=== PATIENT | male | born 1950 | race Caucasian/White ===

== ENCOUNTER 2021-05-15 17:29 | Emergency (ER) | payer BC ==
[2021-05-15] MEDS ORDERED: MORPHINE SULFATE 4 MG INJ IM ONE (18:17)
[2021-05-15] MEDS ORDERED: MORPHINE SULFATE 4 MG INJ ONE (18:19)
--- NOTE | 2021-05-15 18:23 | ERPHSYRPT ---
- History of Present Illness Source: patient Exam Limitations: no limitations Patient Subjective Stated Complaint: " I have had pain in both my legs for a few weeks and I'm suppose to have an MRI but I can't stand the pain anymore. I can barely walk". Triage Nursing Assessment: Pt presents to ER with complaints of bilateral posterior leg pains x 1 month. Pt states pain is worse today than normal. Pt was involved in an accident on 04/01/2021, he fell 7ft and injuried self. Pt is alert and oriented, hard of hearing. Pt skin is pink, warm, and dry. Walks in a short shuffle with impaired gait. Pt respirations are easy. Pt rates pain 10/10 scale and states is worse on left side. Pt has had some doppler studies for this issue and is scheduled for MRI on 05/21 but can't stand the pain anymore. Method of Injury: fell Occurred: days ago (04/01/21) Quality: constant Severity of Pain-Max: severe Severity of Pain-Current: severe Lower Extremities Pain: hip: bilateral, leg: bilateral Modifying Factors: Worsens With: movement Hx Tetanus, Diphtheria Vaccination/Date Given: No Hx Influenza Vaccination/Date Given: Yes Hx Pneumococcal Vaccination/Date Given: Yes Immunizations Up to Date: Yes <RAMONA VILLARREAL - Last Filed: 05/15/21 18:18> <AFSHAN PARMAR - Last Filed: 05/15/21 23:01> - History of Present Illness Time Seen by Provider: 05/15/21 18:08 Physician History: 70 years old male presented in the ER with chief complaint of bilateral hip, legs pain for little over 2 months. He fell off of his 7 feet ladder, landed on the side in the head. He was seen at [facility], had CTs done which were negative. Later on he has 2 Doppler studies done which were negative as well. Per he had a CTA done which showed some occlusion in the arteries and was evaluated by cardiology who do not think patient's pain is secondary to vascular problem but because of pain and has been scheduled for MRI on the of this month. Patient was independent prior to fall but now is having difficulty ambulation with walker. Patient report his pain is 10 out of 10, sharp, bilateral hip and lower leg/feet, cannot stand this pain, aggravated with movements and no significant relieving factors. He has been taking NSAIDs with no relief at all. Denies any new fall or trauma. Denies any numbness but because of pain has been having difficulty movements. Denies any loss of bowel or bladder control (RAMONA VILLARREAL) Allergies/Adverse Reactions: Sulfa (Sulfonamide Antibiotics) Allergy (Verified 05/15/21 18:07) Home Medications: Aspirin 325 mg PO DAILY 05/15/21 [History] Latanoprost 1 drop IO DAILY 05/15/21 [History] Lisinopril 5 mg [Zestril 5 MG] 2.5 mg PO DAILY 05/15/21 [History] Meloxicam 7.5 mg PO DAILY 05/15/21 [History] Metformin HCl [Metformin HCl ER] 1 tab PO DAILY 05/15/21 [History] Verapamil HCl Sr 240 mg [Isoptin S.r. 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 - Vaccination Dates Date of 2cond Vaccination (if applicable): November 2020 <RAMONA VILLARREAL - Last Filed: 05/15/21 18:18> - Review of Systems Constitutional: No Symptoms Eyes: No Symptoms Ears, Nose, & Throat: No Symptoms Respiratory: No Symptoms Cardiac: No Symptoms Abdominal/Gastrointestinal: No Symptoms Genitourinary Symptoms: No Symptoms Musculoskeletal: Back Pain, Injury Skin: No Symptoms Neurological: No Symptoms Psychological: No Symptoms Endocrine: No Symptoms Hematologic/Lymphatic: No Symptoms Immunological/Allergic: No Symptoms <RAMONA VILLARREAL - Last Filed: 05/15/21 18:18> - Past Medical History Pertinent Past Medical History: Yes Cardiac History: Hypertension Endocrine Medical History: Diabetes Type II - Past Surgical History Past Surgical History: Yes Gastrointestinal: Hernia Repair - Social History Smoking Status: Never smoker Exposure to second hand smoke: No Drug Use: none Patient Lives Alone: No <RAMONA VILLARREAL - Last Filed: 05/15/21 18:18> - Physical Exam General Appearance: no apparent distress, alert Eyes, Ears, Nose, Throat Exam: normal ENT inspection, pharynx normal Neck Exam: normal inspection, non-tender, supple, full range of motion Cardiovascular/Respiratory Exam: chest non-tender, normal breath sounds, regular rate/rhythm Gastrointestinal/Abdominal Exam: non-tender, soft, no organomegaly Back Exam: normal inspection, normal range of motion Hips Exam: bilateral: bone tenderness, limited range of motion, pain, soft tissue tenderness, swelling Legs Exam: bilateral leg: non-tender, normal inspection, normal range of motion, no evidence of injury Knees Exam: bilateral knee: non-tender, normal inspection, normal range of motion, no evidence of injury Ankle Exam: bilateral ankle: non-tender, normal inspection, normal range of motion, no evidence of injury Foot Exam: bilateral foot: non-tender, normal inspection, normal range of motion, no evidence of injury Neuro/Tendon Exam: normal sensation, normal tendon functions Mental Status Exam: alert, oriented x 3, cooperative Skin Exam: normal color SpO2 Interpretation: normal SpO2: 97 O2 Delivery: Room Air <RAMONA VILLARREAL - Last Filed: 05/15/21 18:18> - Nursing Vital Signs Nursing Vital Signs: Initial Vital Signs Temperature 99 F 05/15/21 17:59 Pulse Rate 72 05/15/21 17:59 Respiratory Rate 16 05/15/21 17:59 Blood Pressure 175/82 05/15/21 17:59 O2 Sat by Pulse Oximetry 97 05/15/21 17:59 Pain Scale Pain Intensity 5 - Course Nursing assessment & vital signs reviewed: Yes - CT Exams Lumbar Spine CT Interpretation: Tele-radiologist Report, Other (edema at L5-S1 /possible diskitis) <AFSHAN PARMAR - Last Filed: 05/15/21 23:01> Ordered Tests: Active Orders 24 hr Category Date Time Status LUMBAR SPINE W/O [CT] Stat Exams 05/15/21 18:17 Taken PELVIS WITHOUT CONTRAST [CT] Stat Exams 05/15/21 18:17 Taken CBC W DIFF Stat Lab 05/15/21 21:38 Completed SED RATE [Erythrocyte Sedimentation Rate] Stat Lab 05/15/21 21:38 Completed Medication Summary Discontinued Medications Generic Name Dose Route Start Last Admin Trade Name Freq PRN Reason Stop Dose Admin Gabapentin 100 mg 05/15/21 20:41 05/15/21 21:14 Neurontin 100 Mg PO 05/15/21 20:42 100 mg STAT ONE Administration Hydromorphone HCl 4 mg 05/15/21 21:02 05/15/21 21:14 Dilaudid 4 Mg Tab PO 05/15/21 21:03 4 mg STAT ONE Administration Hydromorphone HCl 0.5 mg 05/15/21 21:10 05/15/21 21:15 Hydromorphone 1 Mg/Ml Injection IV 05/15/21 21:11 Not Given STAT ONE Morphine Sulfate 4 mg 05/15/21 18:17 05/15/21 18:22 Morphine Sulfate 4 Mg Inj IM 05/15/21 18:18 4 mg STAT ONE Administration Morphine Sulfate Confirm 05/15/21 18:19 Morphine Sulfate 4 Mg Inj Administered 05/15/21 18:20 Dose 4 mg .ROUTE .STK-MED ONE Orphenadrine Citrate 60 mg 05/15/21 20:00 05/15/21 20:04 Norflex 60 Mg/2 Ml IM 05/15/21 20:01 60 mg STAT ONE Administration Orphenadrine Citrate Confirm 05/15/21 20:03 Norflex 60 Mg/2 Ml Administered 05/15/21 20:04 Dose 60 mg .ROUTE .STK-MED ONE Prednisone 30 mg 05/15/21 19:58 05/15/21 20:04 Deltasone 20 Mg PO 05/15/21 19:59 30 mg STAT ONE Administration Prednisone Confirm 05/15/21 20:03 Deltasone 20 Mg Administered 05/15/21 20:04 Dose 40 mg .ROUTE .STK-MED ONE Lab/Rad Data: Laboratory Result Diagrams 05/15/21 21:38 Laboratory Results 05/15/21 Range/Units 21:38 WBC 9.4 (4.0-10.5) K/mm3 RBC 4.19 (4.1-5.6) M/mm3 Hgb 13.5 (12.5-18.0) gm/dl Hct 41.0 L (42-50) % MCV 97.9 (78-100) fl MCH 32.2 H (26-32) pg MCHC 32.9 (32-36) g/dl RDW 12.1 (11.5-14.0) % Plt Count 260 (150-450) K/mm3 MPV 8.5 (7.5-11.0) fl Gran % 78.2 H (36.0-66.0) % Eos # (Auto) 0.07 (0-0.5) Absolute Lymphs (auto) 0.75 L (1.0-4.6) Absolute Monos (auto) 1.20 (0.0-1.3) Lymphocytes % 8.0 L (24.0-44.0) % Monocytes % 12.8 H (0.0-12.0) % Eosinophils % 0.7 (0.00-5.0) % Basophils % 0.3 (0.0-0.4) % Absolute Granulocytes 7.30 H (1.4-6.9) Basophils # 0.03 (0-0.4) ESR 60 H (0-15) mm/hr - Progress Progress: improved, re-examined Counseled pt/family regarding: lab results, diagnosis, need for follow-up, rad results <AFSHAN PARMAR - Last Filed: 05/15/21 23:01> - Progress Progress Note: 05/15/21 19:41 pt taken in [facility] from Dr. Villarreal after discussion of pending tests and prior w/us at other locations recently for similar symptoms, and introduction and differential Dx discussion - - has had previous workups finding non critical PAD bilateral LE and has good pulses now on exam. pain management boost being his main concern but we are rechecking CT hips since these are most painful now. 05/15/21 19:57 discussed risk and benefit of short course steroids ada with DM and pt and wish to try this , also muscle relaxant. Exam revelas normal neuro and reflexes all ext. no HURLEY or other Neuro sxs. 05/15/21 20:[address] reading which is taking longer due to recent high volumes. 05/15/21 22:45 CT is concerning for discitis - WBC is normal, but hx of fevers more than a week ago with UTI now resolved without symptoms - sed rate at 60 . Discussed with pt and family and pt wishes to decline further testing in ER or admission for obs at this time after discussion of risks that this could be infection - and he has the capacity to make this choice , and states that he will return if not continuing to improve. He is advised to see his provider ZEAN and move up his MRI as well. (AFSHAN PARMAR) <LEO VILLARREALMIR - Last Filed: 05/15/21 18:18> - Departure Departure Disposition: Home Critical Care Time: No <AFSHAN PARMAR - Last Filed: 05/15/21 23:01> - Departure Clinical Impression: DDD (degenerative disc disease), lumbar, Edema L5 and possible discitis Condition: Good Referrals: Provider,Unknown [Primary Care Provider] - Instructions: Degenerative Disc Disease (DC) Additional Instructions: We have not determined the exact cause for your pain , but there are findings of disc disease in the lumbar spine. There are also concerns the inflammation or even infection such as in the disks could be present and require urgent therapy - so it is best to see your Doctor or medical provider as soon as possible to arrange a more urgent MRI if possible to better evaluate this possibility. Also followup your blood pressure with your Dr. In the meantime if you change your mind and would like admission or further evaluation , are not improving, have fevers, or any other symptoms of concern return any time. Prescriptions: Orphenadrine Citrate 100 mg [Norflex 100 MG Tablet] 100 mg PO Q12H PRN PRN #14 tab PRN Reason: Muscle Spasms Gabapentin 100 mg [Neurontin 100 MG] 100 mg PO TID #20 tab
[2021-05-15] MEDS ORDERED: DELTASONE 20 MG PO ONE (19:58)
[2021-05-15] MEDS ORDERED: Norflex 60 MG/2 ML IM ONE (20:00)
[2021-05-15] MEDS ORDERED: DELTASONE 20 MG ONE (20:03)
[2021-05-15] MEDS ORDERED: Norflex 60 MG/2 ML ONE (20:03)
[2021-05-15] MEDS ORDERED: Neurontin 100 MG PO ONE (20:41)
[2021-05-15] MEDS ORDERED: Dilaudid 4 MG Tab PO ONE (21:02)
[2021-05-15] MEDS ORDERED: Hydromorphone 1 mg/ml Injection IV ONE (21:10)
[2021-05-15 21:34] VITALS: O2SAT 95
[2021-05-15 21:41] LABS: BASOPHIL % 0.3 % (0.0-0.4); Basophil (Absolute #) 0.03 (0-0.4); Eosinophil % 0.7 % (0.00-5.0); Eosinophil (Absolute #) 0.07 (0-0.5); Hemoglobin 13.5 gm/dl (12.5-18.0); Lymphocyte (Absolute #) 0.75 (1.0-4.6); Mean Cell Volume 97.9 fl (78-100); Mean Corpuscular Hemoglobin 32.2 pg (26-32); Mean Corpuscular Hgb Concent. 32.9 g/dl (32-36); Mean Platelet Volume 8.5 fl (7.5-11.0); Monocytes % 12.8 % (0.0-12.0); Neutrophil % 78.2 % (36.0-66.0); Platelet Count 260 K/mm3 (150-450); Red Blood Count 4.19 M/mm3 (4.1-5.6); Red Cell Distribution Width 12.1 % (11.5-14.0); White Blood Count 9.4 K/mm3 (4.0-10.5)
[2021-05-15 22:09] LABS: Erythrocyte Sedimentation Rate 60 mm/hr (0-15)
[2021-05-15 23:05] VITALS: BP 167/90; PULSE 68
--- NOTE | 2021-05-16 06:43 | XRAY ---
Indication: Hip and low back pain following fall 2 months. Multiple contiguous axial images obtained through the pelvis with special attention to the osseous structures. Comparison: None Osseous structures demineralized consistent with patient's age. No acute fracture, dislocation, or suspicious bony lesions. Visualized noncontrasted soft tissues including bowel loops and urinary bladder are unremarkable. Incidental mild aortoiliac calcifications. CT lumbar spine reported separately. Impression: 1. Osteopenia and arteriosclerotic calcifications. 2. Remaining CT pelvis without contrast exam is negative. Comment: Preliminary interpretation made by [facility]. No critical discrepancy.
--- NOTE | 2021-05-17 11:33 | XRAY ---
Indication: Hip and low back pain following fall 2 months. Multiple contiguous axial images obtained through the lumbar spine. Sagittal and coronal reformatted images obtained. Comparison: None Osseous structures demineralized consistent with patient's age. Axial images negative for acute fracture or suspicious bone lesions. There is L2-S1 annular disc osteophyte complex narrowing the spinal canal and neural foramina bilaterally. Also minimal L3-L4 degenerative vacuum disc phenomena and mild/moderate L3-S1 degenerative facet hypertrophy. Sagittal and coronal reformatted images demonstrates normal lumbar lordosis with L2-S1 disc space loss. Minimal 1-2 mm anterolisthesis of L5 on S1. No acute compression fracture. Visualized noncontrasted soft tissues demonstrates scattered aortoiliac calcifications. Impression: 1. Negative for acute fracture. 2. Osteopenia, multilevel degenerative spondylosis, and minimal L5 grade 1 spondylolisthesis. Comment: Preliminary interpretation made by [facility]. No critical discrepancy.
== END 2021-05-15 23:13 | disposition home or self-care (01) ==
LOC: ED 17:29
DX: M51.36 Other intervertebral disc degeneration, lumbar region (principal); R60.9 Edema, unspecified; M79.605 Pain in left leg; M79.604 Pain in right leg; Z79.899 Other long term (current) drug therapy; E11.9 Type 2 diabetes mellitus without complications
CPT/HCPCS: 36415; 72131; 72192; 85025; 85652; 96372; 99284; J2270; J2360; A9270-GY

== ENCOUNTER 2021-05-28 03:28 | Inpatient (IN) | payer MEDICARE, BC ==
[2021-05-28] MEDS ORDERED: TYLENOL 325 MG PO STA (04:03)
[2021-05-28] MEDS ORDERED: Sodium Chloride 0.9% 1000 ML 1,000 ML IV STA (04:03)
[2021-05-28] MEDS ORDERED: Sodium Chloride 0.9% 1000 ML 1,000 ML ONE (04:30)
[2021-05-28] MEDS ORDERED: TYLENOL 325 MG ONE (04:30)
--- NOTE | 2021-05-28 04:37 | ERPHSYRPT ---
- History of Present Illness Time Seen by Provider: 05/28/21 03:45 Source: patient Exam Limitations: no limitations Patient Subjective Stated Complaint: pt c/o low back pain since fall and diagnosis with compression fractures. ems states he is barely able to walk at home Triage Nursing Assessment: pt alert and oriented, answers questions approp. pt very hard of hearing. pt arrive per ambulance and transfers to [facility] with assist of 3. skin warm and dry. respirations nonlabored. pt with urinary frequency and stress incont noted. Physician History: Patient is a 70-year-old male presents to our ED via EMS for evaluation of low back pain. Patient also admits to urinary frequency and incontinence. Upon arrival to our ED it was found patient to be tachycardic in the 120s. Patient was febrile upon triage. Patient had an MRI 1 week ago for his back. No interval falls or trauma. Patient symptoms are progressive. Symptoms are moderate in intensity. No specific worsening improving factors. No change in bowel bladder function. No saddle anesthesia. No recent back procedures. Patient voices no other complaints concerns at this time. Timing/Duration: week(s) Severity: moderate Modifying Factors: Improves With: nothing Associated Symptoms: fever, No abdominal pain, No chest pain, No loss of appetite, No syncope, No seizure Allergies/Adverse Reactions: Sulfa (Sulfonamide Antibiotics) Allergy (Verified 05/28/21 04:43) Home Medications: Aspirin 325 mg PO DAILY 05/15/21 [History] Latanoprost 1 drop IO DAILY 05/15/21 [History] Lisinopril 5 mg [Zestril 5 MG] 2.5 mg PO DAILY 05/15/21 [History] Meloxicam 7.5 mg PO DAILY 05/15/21 [History] Metformin HCl [Metformin HCl ER] 1 tab PO DAILY 05/15/21 [History] Gabapentin 100 mg [Neurontin 100 MG] 300 mg PO TID 05/28/21 [History] Hydrocodone/Acetaminophen [Hydrocodone-Acetamin 7.5-325] 1 each PO Q6H PRN PRN 05/28/21 [History] Methylprednisolone 4 mg [Medrol 4 mg] 4 mg PO 05/28/21 [History] Hx Tetanus, Diphtheria Vaccination/Date Given: No Hx Influenza Vaccination/Date Given: Yes Hx Pneumococcal Vaccination/Date Given: Yes Immunizations Up to Date: No Travel Risk - International Travel Have you traveled outside of the country in past 3 weeks: No - Coronavirus Screening Are you exhibiting any of the following symptoms?: Yes Symptoms: Fever, Loss of Taste or Smell Close contact with a COVID-19 positive Pt in past 14-21 Days: No - Vaccine Status Have you recieved a Covid-19 vaccination: Yes 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 - Vaccination Dates Date of 2cond Vaccination (if applicable): November 2020 Dates if Unknown: above dates - Review of Systems Constitutional: No Symptoms, No Fever, No Chills Eyes: No Symptoms Ears, Nose, & Throat: No Symptoms Respiratory: No Symptoms, No Cough, No Dyspnea Cardiac: No Symptoms, No Chest Pain, No Edema, No Syncope Abdominal/Gastrointestinal: No Symptoms, No Abdominal Pain, No Nausea, No Vomi ting, No Diarrhea Genitourinary Symptoms: No Symptoms, No Dysuria Musculoskeletal: No Symptoms, No Back Pain, No Neck Pain Skin: No Symptoms, No Rash Neurological: No Symptoms, No Dizziness, No Focal Weakness, No Sensory Changes Psychological: No Symptoms Endocrine: No Symptoms Hematologic/Lymphatic: No Symptoms Immunological/Allergic: No Symptoms All Other Systems: Reviewed and Negative - Past Medical History Pertinent Past Medical History: Yes Cardiac History: Hypertension Endocrine Medical History: Diabetes Type II Other Medical History: compression fx of l5-s1 - Past Surgical History Past Surgical History: Yes Gastrointestinal: Hernia Repair - Social History Smoking Status: Never smoker Exposure to second hand smoke: No Drug Use: none Patient Lives Alone: No - Nursing Vital Signs Nursing Vital Signs: Initial Vital Signs Temperature 100.0 F 05/28/21 03:37 Pulse Rate 114 H 05/28/21 03:37 Respiratory Rate 18 05/28/21 03:37 Blood Pressure 181/93 05/28/21 03:37 O2 Sat by Pulse Oximetry 94 L 05/28/21 03:37 Pain Scale Pain Intensity [Lower Back] 10 Pain Intensity 6 - Physical Exam General Appearance: no apparent distress, alert Eye Exam: PERRL/EOMI, eyes nml inspection Ears, Nose, Throat Exam: normal ENT inspection, TMs normal, pharynx normal, moist mucous membranes Neck Exam: normal inspection, non-tender, supple, full range of motion Respiratory Exam: normal breath sounds, lungs clear, No respiratory distress Cardiovascular Exam: regular rate/rhythm, normal heart sounds, normal peripheral pulses Gastrointestinal/Abdomen Exam: soft, normal bowel sounds, other (Left costovertebral angle tenderness.), No tenderness, No mass Back Exam: normal inspection, normal range of motion, other (Chronic back pain), No CVA tenderness, No vertebral tenderness Extremity Exam: normal inspection, normal range of motion, pelvis stable Neurologic Exam: alert, oriented x 3, cooperative, normal mood/affect, sensation nml, No motor deficits Skin Exam: normal color, warm, dry, No rash Lymphatic Exam: No adenopathy SpO2 Interpretation: normal SpO2: 94 O2 Delivery: Room Air - Course Nursing assessment & vital signs reviewed: Yes Ordered Tests: Active Orders 24 hr Category Date Time Status IV Insertion STAT Care 05/28/21 04:03 Active Pulse Oximetry (ED) STAT Care 05/28/21 04:03 Active BLOOD CULTURE Stat Lab 05/28/21 04:37 Ordered CBC W DIFF Stat Lab 05/28/21 04:37 Completed CMP Stat Lab 05/28/21 04:37 Completed CULTURE,URINE Stat Lab 05/28/21 04:37 Received Lactic Acid Stat Lab 05/28/21 04:03 Completed Manual Differential NC Stat Lab 05/28/21 04:37 Completed UA W/RFX UR CULTURE Stat Lab 05/28/21 03:53 Completed Transfer Order Routine Transfer 05/28/21 Ordered Medication Summary Generic Name Dose Route Start Last Admin Trade Name Freq PRN Reason Stop Dose Admin Ceftriaxone Sodium/Dextrose 1 g in 50 mls @ 100 mls/hr 05/28/21 10:00 05/28/21 05:46 Rocephin 1 Gm-D5w 50 Ml Bag IV 05/31/21 09:59 Infused [id number] MARIEL Infusion Discontinued Medications Generic Name Dose Route Start Last Admin Trade Name Freq PRN Reason Stop Dose Admin Acetaminophen 975 mg 05/28/21 04:03 05/28/21 04:36 Tylenol 325 Mg PO 05/28/21 04:04 975 mg STAT STA Administration Acetaminophen Confirm 05/28/21 04:30 Tylenol 325 Mg Administered 05/28/21 04:31 Dose 975 mg .ROUTE .STK-MED ONE Sodium Chloride 1,000 mls @ 999 mls/hr 05/28/21 04:03 05/28/21 05:47 Sodium Chloride 0.9% 1000 Ml IV 05/28/21 05:03 Infused .Q1H1M STA Infusion Sodium Chloride Confirm 05/28/21 04:30 Sodium Chloride 0.9% 1000 Ml Administered 05/28/21 04:31 Dose 1,000 mls @ .ROUTE .[facility] ONE Lab/Rad Data: Laboratory Result Diagrams 05/28/21 04:37 05/28/21 04:37 Laboratory Results 05/28/21 05/28/21 05/28/21 Range/Units 05:00 04:37 04:37 WBC 15.6 H (4.0-10.5) K/mm3 RBC 4.29 (4.1-5.6) M/mm3 Hgb 14.1 (12.5-18.0) gm/dl Hct 42.6 (42-50) % MCV 99.3 (78-100) fl MCH 32.9 H (26-32) pg MCHC 33.1 (32-36) g/dl RDW 12.4 (11.5-14.0) % Plt Count 279 (150-450) K/mm3 MPV 9.0 (7.5-11.0) fl Segmented Neutrophils 84 H (36.-66.) % Band Neutrophils 3 H (0.0-2.0) % Lymphocytes (Manual) 4 L (24-44) % Monocytes (Manual) 9 (0.0-12.0) % Platelet Estimate NORMAL (NORMAL) RBC Morphology NORMAL Sodium 129 L (137-145) mmol/L Potassium 4.5 (3.5-5.1) mmol/L Chloride 89 L (98-107) mmol/L Carbon Dioxide 30 (22-30) mmol/L Anion Gap 14.7 (5-15) MEQ/L BUN 23 H (9-20) mg/dL Creatinine 0.80 (0.66-1.25) mg/dL Estimated GFR > 60.0 ML/MIN Glucose 217 H (74-106) mg/dL Lactic Acid (0.4-2.0) Calcium 9.0 (8.4-10.2) mg/dL Total Bilirubin 1.00 (0.2-1.3) mg/dL AST 27 (17-59) U/L ALT 15 (0-50) U/L Alkaline Phosphatase 151 H (38-126) U/L Serum Total Protein 7.4 (6.3-8.2) g/dL Albumin 3.7 (3.5-5.0) g/dL Urine Color (YELLOW) Urine Appearance (CLEAR) Urine pH (5-6) Ur Specific [employer] (1.005-1.025) Urine Protein (Negative) Urine Ketones (NEGATIVE) Urine Blood (0-5) Miles/ul Urine Nitrite (NEGATIVE) Urine Bilirubin (NEGATIVE) Urine Urobilinogen (0-1) mg/dL Ur Leukocyte Esterase (NEGATIVE) Urine WBC (Auto) (0-5) /HPF Urine RBC (Auto) (0-2) /HPF U Epithel Cells (Auto) (FEW) /HPF Urine Bacteria (Auto) (NEGATIVE) /HPF Urine Culture Reflexed (NO) Urine Glucose (NEGATIVE) mg/dL SARS-CoV-2 (PCR) NEGATIVE (NEGATIVE) 05/28/21 05/28/21 Range/Units 04:03 03:53 WBC (4.0-10.5) K/mm3 RBC (4.1-5.6) M/mm3 Hgb (12.5-18.0) gm/dl Hct (42-50) % MCV (78-100) fl MCH (26-32) pg MCHC (32-36) g/dl RDW (11.5-14.0) % Plt Count (150-450) K/mm3 MPV (7.5-11.0) fl Segmented Neutrophils (36.-66.) % Band Neutrophils (0.0-2.0) % Lymphocytes (Manual) (24-44) % Monocytes (Manual) (0.0-12.0) % Platelet Estimate (NORMAL) RBC Morphology Sodium (137-145) mmol/L Potassium (3.5-5.1) mmol/L Chloride (98-107) mmol/L Carbon Dioxide (22-30) mmol/L Anion Gap (5-15) MEQ/L BUN (9-20) mg/dL Creatinine (0.66-1.25) mg/dL Estimated GFR ML/MIN Glucose (74-106) mg/dL Lactic Acid 1.6 (0.4-2.0) Calcium (8.4-10.2) mg/dL Total Bilirubin (0.2-1.3) mg/dL AST (17-59) U/L ALT (0-50) U/L Alkaline Phosphatase (38-126) U/L Serum Total Protein (6.3-8.2) g/dL Albumin (3.5-5.0) g/dL Urine Color YELLOW (YELLOW) Urine Appearance TURBID (CLEAR) Urine pH 6.0 (5-6) Ur Specific [employer] 1.014 (1.005-1.025) Urine Protein 100 (Negative) Urine Ketones NEGATIVE (NEGATIVE) Urine Blood LARGE (0-5) Miles/ul Urine Nitrite POSITIVE (NEGATIVE) Urine Bilirubin NEGATIVE (NEGATIVE) Urine Urobilinogen 4 (0-1) mg/dL Ur Leukocyte Esterase MODERATE (NEGATIVE) Urine WBC (Auto) >100 (0-5) /HPF Urine RBC (Auto) 51-100 (0-2) /HPF U Epithel Cells (Auto) NONE (FEW) /HPF Urine Bacteria (Auto) MANY (NEGATIVE) /HPF Urine Culture Reflexed ORDERED SEPARATELY (NO) Urine Glucose NEGATIVE (NEGATIVE) mg/dL SARS-CoV-2 (PCR) (NEGATIVE) - Progress Progress: improved Progress Note: Patient is a 70-year-old male with a history of diabetes presented to our ED with complaint of back pain. Patient also complains of urinary symptomology. Patient spontaneously voided 400 cc. Cespedes catheter inserted and an additional 400 cc of urine purulent urine was expressed. Patient had a low-grade fever. He was tachycardic in 120s. Work-up confirmed a urinary tract infection. Leukocytosis of 15.6 observed. 1 g Rocephin infused. Patient was hyponatremic at 129. Normal saline infused. Patient reassessed. He felt better. Pain imp roved. Covid test negative. Case discussed with Dr. Carreon as he is our on- call doctor for the day. Dr. Bowen accepts admission to observation. Admission orders placed. 05/28/21 06:48 Discussed with : Terrence Will see patient in: hospital (observation) Counseled pt/family regarding: lab results, diagnosis, rad results - Departure Departure Disposition: Observation Clinical Impression: UTI (urinary tract infection), Fever, Tachycardia, Hyponatremia, Leukocytosis, Urinary retention Condition: Stable Critical Care Time: No Referrals: SANKET BULLARD [Primary Care Provider] -
[2021-05-28 04:41] LABS: Hematocrit 42.6 % (42-50); Hemoglobin 14.1 gm/dl (12.5-18.0); Mean Cell Volume 99.3 fl (78-100); Mean Corpuscular Hemoglobin 32.9 pg (26-32); Mean Corpuscular Hgb Concent. 33.1 g/dl (32-36); Platelet Count 279 K/mm3 (150-450); Red Blood Count 4.29 M/mm3 (4.1-5.6); Red Cell Distribution Width 12.4 % (11.5-14.0); White Blood Count 15.6 K/mm3 (4.0-10.5)
[2021-05-28 04:48] LABS: Appearance TURBID (CLEAR); Bacteria MANY /HPF (NEGATIVE); Bilirubin NEGATIVE (NEGATIVE); Blood LARGE Ery/ul (0-5); Glucose NEGATIVE (NEGATIVE); Ketones NEGATIVE (NEGATIVE); Leukocyte Esterase MODERATE (NEGATIVE); Nitrite POSITIVE (NEGATIVE); Protein,Urine Dip 100 (Negative); RBC 51-100 /HPF (0-2); Specific Gravity 1.014 (1.005-1.025); Urobilinogen 4 mg/dL (0-1); WBC >100 /HPF (0-5)
[2021-05-28 04:53] LABS: ALBUMIN 3.7 g/dL (3.5-5.0); ALKALINE PHOSPHATASE 151 U/L (38-126); ANION GAP 14.7 MEQ/L (5-15); BLOOD UREA NITROGEN 23 mg/dL (9-20); CHLORIDE 89 mmol/L (98-107); Carbon Dioxide 30 mmol/L (22-30); EST GLOMERULAR FILTRATION RATE > 60.0 ML/MIN; Glucose 217 mg/dL (74-106); Potassium 4.5 mmol/L (3.5-5.1); SGOT/AST 27 U/L (17-59); SGPT/ALT 15 U/L (0-50); SODIUM 129 mmol/L (137-145); Total Protein 7.4 g/dL (6.3-8.2)
[2021-05-28 05:44] LABS: BAND 3 % (0.0-2.0); Lymphocytes 4 % (24-44); Monocyte 9 % (0.0-12.0); Neutrophils 84 % (36.-66.); Platelet Estimate NORMAL (NORMAL); Total Cells Counted 100
[2021-05-28] MEDS ORDERED: Zofran 4 MG/2 ML VIAL IV ONE (07:48)
[2021-05-28] MEDS ORDERED: MORPHINE SULFATE 2 MG INJ IV ONE (07:48)
[2021-05-28] MEDS ORDERED: Zofran 4 MG/2 ML VIAL ONE (07:49)
[2021-05-28] MEDS ORDERED: MORPHINE SULFATE 2 MG INJ ONE (07:49)
[2021-05-28] MEDS ORDERED: MORPHINE SULFATE 2 MG INJ IV PRN (09:36)
[2021-05-28] MEDS ORDERED: Zofran 4 MG/2 ML VIAL IV PRN (09:36)
[2021-05-28] MEDS: ROCEPHIN 1 Gm-D5w 50 ml Bag** 1 G/50 ML IVPB IV SCH (09:45)
[2021-05-28] MEDS ORDERED: ROCEPHIN 1 Gm-D5w 50 ml Bag** 1 G/50 ML IVPB IV SCH (10:00)
[2021-05-28] MEDS: Neurontin 400 MG PO SCH ×3 (11:23→22:53)
[2021-05-28] MEDS: HYDROCODONE-ACETAMIN 10-325 MG PO PRN ×2 (11:24→16:03)
[2021-05-28] MEDS: Sodium Chloride 0.9% 1000 ML 1,000 ML IV SCH ×2 (11:24→20:15)
[2021-05-28] MEDS ORDERED: ISOPTIN S.R. 240 MG PO ONE (13:59)
[2021-05-28] MEDS ORDERED: Zestril 5 MG PO ONE (13:59)
[2021-05-28] MEDS ORDERED: HUMALOG SQ PRN (14:47)
[2021-05-28] MEDS: Zestril 5 MG PO SCH (17:48)
[2021-05-28] MEDS: ISOPTIN S.R. 240 MG PO SCH (17:49)
[2021-05-28] MEDS: Hydromorphone 1 mg/ml Injection IV PRN (18:47)
[2021-05-28] MEDS: Xalatan OP SCH (18:48)
[2021-05-28] MEDS ORDERED: VANCOMYCIN 1 GRAM/200 ML BAG 1 GM/200 ML PIGGYBACK IV ONE ×2 (21:20→21:30)
[2021-05-28] MEDS: Zanaflex 4 MG PO SCH (22:53)
[2021-05-28] MEDS: TYLENOL 325 MG PO PRN (23:14)
[2021-05-29] MEDS: Hydromorphone 1 mg/ml Injection IV PRN (04:10)
[2021-05-29 05:30] LABS: Hematocrit 37.4 % (42-50); Hemoglobin 11.7 gm/dl (12.5-18.0); Mean Cell Volume 102.5 fl (78-100); Mean Corpuscular Hemoglobin 32.1 pg (26-32); Mean Corpuscular Hgb Concent. 31.3 g/dl (32-36); Mean Platelet Volume 9.1 fl (7.5-11.0); Platelet Count 223 K/mm3 (150-450); Red Blood Count 3.65 M/mm3 (4.1-5.6); Red Cell Distribution Width 12.7 % (11.5-14.0); White Blood Count 15.6 K/mm3 (4.0-10.5)
[2021-05-29] MEDS: HYDROCODONE-ACETAMIN 10-325 MG PO PRN ×3 (05:34→18:45)
[2021-05-29 05:40] LABS: ALBUMIN 2.7 g/dL (3.5-5.0); ALKALINE PHOSPHATASE 101 U/L (38-126); ANION GAP 13.5 MEQ/L (5-15); BLOOD UREA NITROGEN 24 mg/dL (9-20); CHLORIDE 91 mmol/L (98-107); Carbon Dioxide 28 mmol/L (22-30); Creatinine 1 1.08 mg/dL (0.66-1.25); EST GLOMERULAR FILTRATION RATE > 60.0 ML/MIN; Glucose 208 mg/dL (74-106); Potassium 4.3 mmol/L (3.5-5.1); SGOT/AST 20 U/L (17-59); SGPT/ALT 10 U/L (0-50); SODIUM 128 mmol/L (137-145); Total Protein 5.8 g/dL (6.3-8.2)
[2021-05-29 07:08] LABS: BAND 3 % (0.0-2.0); Lymphocytes 6 % (24-44); Monocyte 5 % (0.0-12.0); Neutrophils 86 % (36.-66.); Platelet Estimate NORMAL (NORMAL); Total Cells Counted 100
[2021-05-29] MEDS: Sodium Chloride 0.9% 1000 ML 1,000 ML IV SCH ×3 (07:46→23:30)
[2021-05-29] MEDS: ISOPTIN S.R. 240 MG PO SCH (09:14)
[2021-05-29] MEDS: Zestril 5 MG PO SCH (09:14)
[2021-05-29] MEDS: Zanaflex 4 MG PO SCH ×2 (09:14→13:49)
[2021-05-29] MEDS: ROCEPHIN 1 Gm-D5w 50 ml Bag** 1 G/50 ML IVPB IV SCH (09:15)
[2021-05-29] MEDS: Neurontin 400 MG PO SCH ×3 (09:15→22:21)
[2021-05-29] MEDS: Xalatan OP SCH ×2 (09:17→22:26)
[2021-05-29] MEDS ORDERED: Sodium Chloride 0.9% 1000 ML 1,000 ML IV STA (09:29)
[2021-05-29] MEDS ORDERED: Hydromorphone 1 mg/ml Injection IV PRN (09:31)
--- NOTE | 2021-05-29 15:25 | PCM.NOTE ---
Date and Time: 05/29/21 1520 Subjective Assessment: Patient is up in chair dozing. No new c/o. Blood cultures were both positive for gram positive cocci in clusters and Vancomycin was started last night. Patient is drinking but not hungry for food today. Is no c/o leg pain today ,meds are giving relief. Objective Exam General Appearance: no apparent distress Neurologic Exam: alert (but nodding off. Appears comfortable in chair with legs elevated.) Skin Exam: normal color, warm, dry Neck Exam: normal inspection Respiratory Exam: normal breath sounds Cardiovascular Exam: regular rate/rhythm Gastrointestinal/Abdomen Exam: soft (nontender,no flank or CVA tenderness) Extremity Exam: other (no edema,no tenderness when pulling socks down for exam, feet are cool,no redness.) OBJECTIVE DATA Vital Signs: Vital Signs - 24 hr Temp Pulse Resp BP BP Pulse Ox 05/29/21 13:38 99.7 F 05/29/21 12:00 99.0 F 87 18 144/72 93 L 05/29/21 08:00 97.6 F 66 20 154/72 94 L 05/29/21 04:07 97.1 F 69 18 149/78 97 05/28/21 23:42 100.0 F 86 20 145/67 96 05/28/21 19:12 97.8 F 80 16 125/67 94 L 05/28/21 16:00 99.4 F 96 H 18 182/88 93 L Pain Assessment - Last Documented Pain Intensity [Lower Back] 10 Pain Intensity 10 Pain Scale Used 0-10 Pain Scale Intake and Output: Intake & Output 05/27/21 05/28/21 05/29/21 05/30/21 11:59 11:59 11:59 11:59 Intake Total 2259 120 Output Total 400 2300 600 Balance -400 -41 -480 Weight 74.4 kg Lab Results: Lab Results-Last 24 Hours 05/28/21 05/28/21 05/28/21 Range/Units 16:00 18:20 20:44 WBC (4.0-10.5) K/mm3 RBC (4.1-5.6) M/mm3 Hgb (12.5-18.0) gm/dl Hct (42-50) % MCV (78-100) fl MCH (26-32) pg MCHC (32-36) g/dl RDW (11.5-14.0) % Plt Count (150-450) K/mm3 MPV (7.5-11.0) fl Segmented Neutrophils (36.-66.) % Band Neutrophils (0.0-2.0) % Lymphocytes (Manual) (24-44) % Monocytes (Manual) (0.0-12.0) % Platelet Estimate (NORMAL) RBC Morphology ESR 67 H (0-15) mm/hr Sodium (137-145) mmol/L Potassium (3.5-5.1) mmol/L Chloride (98-107) mmol/L Carbon Dioxide (22-30) mmol/L Anion Gap (5-15) MEQ/L BUN (9-20) mg/dL Creatinine (0.66-1.25) mg/dL Estimated GFR ML/MIN Glucose (74-106) mg/dL POC Glucometer 222 H 192 H (74 to 106) mg/dL Lactic Acid (0.4-2.0) Calcium (8.4-10.2) mg/dL Total Bilirubin (0.2-1.3) mg/dL AST (17-59) U/L ALT (0-50) U/L Alkaline Phosphatase (38-126) U/L Serum Total Protein (6.3-8.2) g/dL Albumin (3.5-5.0) g/dL Procalcitonin (0.030-0.080) ng/mL 05/29/21 05/29/21 05/29/21 Range/Units 05:17 05:17 05:17 WBC 15.6 H (4.0-10.5) K/mm3 RBC 3.65 L (4.1-5.6) M/mm3 Hgb 11.7 L (12.5-18.0) gm/dl Hct 37.4 L (42-50) % MCV 102.5 H (78-100) fl MCH 32.1 H (26-32) pg MCHC 31.3 L (32-36) g/dl RDW 12.7 (11.5-14.0) % Plt Count 223 (150-450) K/mm3 MPV 9.1 (7.5-11.0) fl Segmented Neutrophils 86 H (36.-66.) % Band Neutrophils 3 H (0.0-2.0) % Lymphocytes (Manual) 6 L (24-44) % Monocytes (Manual) 5 (0.0-12.0) % Platelet Estimate NORMAL (NORMAL) RBC Morphology NORMAL ESR (0-15) mm/hr Sodium 128 L (137-145) mmol/L Potassium 4.3 (3.5-5.1) mmol/L Chloride 91 L (98-107) mmol/L Carbon Dioxide 28 (22-30) mmol/L Anion Gap 13.5 (5-15) MEQ/L BUN 24 H (9-20) mg/dL Creatinine 1.08 (0.66-1.25) mg/dL Estimated GFR > 60.0 ML/MIN Glucose 208 H (74-106) mg/dL POC Glucometer (74 to 106) mg/dL Lactic Acid (0.4-2.0) Calcium 8.0 L (8.4-10.2) mg/dL Total Bilirubin 0.70 (0.2-1.3) mg/dL AST 20 (17-59) U/L ALT 10 (0-50) U/L Alkaline Phosphatase 101 (38-126) U/L Serum Total Protein 5.8 L (6.3-8.2) g/dL Albumin 2.7 L (3.5-5.0) g/dL Procalcitonin 0.589 H (0.030-0.080) ng/mL 05/29/21 05/29/21 05/29/21 Range/Units 05:30 07:33 11:29 WBC (4.0-10.5) K/mm3 RBC (4.1-5.6) M/mm3 Hgb (12.5-18.0) gm/dl Hct (42-50) % MCV (78-100) fl MCH (26-32) pg MCHC (32-36) g/dl RDW (11.5-14.0) % Plt Count (150-450) K/mm3 MPV (7.5-11.0) fl Segmented Neutrophils (36.-66.) % Band Neutrophils (0.0-2.0) % Lymphocytes (Manual) (24-44) % Monocytes (Manual) (0.0-12.0) % Platelet Estimate (NORMAL) RBC Morphology ESR (0-15) mm/hr Sodium (137-145) mmol/L Potassium (3.5-5.1) mmol/L Chloride (98-107) mmol/L Carbon Dioxide (22-30) mmol/L Anion Gap (5-15) MEQ/L BUN (9-20) mg/dL Creatinine (0.66-1.25) mg/dL Estimated GFR ML/MIN Glucose (74-106) mg/dL POC Glucometer 174 H 144 H (74 to 106) mg/dL Lactic Acid 1.3 (0.4-2.0) Calcium (8.4-10.2) mg/dL Total Bilirubin (0.2-1.3) mg/dL AST (17-59) U/L ALT (0-50) U/L Alkaline Phosphatase (38-126) U/L Serum Total Protein (6.3-8.2) g/dL Albumin (3.5-5.0) g/dL Procalcitonin (0.030-0.080) ng/mL Radiology Exams: Radiology Procedures Category Date Time Status MRI L-SPINE WITH CONTRAST [MRI] Routine Exams 05/31/21 08:00 Ordered MRI T-SPINE WITH CONTRAST [MRI] Routine Exams 05/31/21 08:00 Ordered Assessment/Plan (1) Sepsis Current Visit: Yes Status: Acute Qualifiers: Sepsis type: sepsis due to unspecified organism Assessment & Plan: urine and 2 blood cultures growing gram positive cocci in clusters- started Vancomycin - 1st dose was last night. Pharmacy dosing. Tmax= 99.7. Renal function and respirations are normal. (2) Radicular leg pain Current Visit: Yes Status: Acute Assessment & Plan: acute and chronic -pain controlled currently Code(s): M54.10 - RADICULOPATHY, SITE UNSPECIFIED
[2021-05-29] MEDS: Zanaflex 4 MG PO PRN (19:51)
[2021-05-30] MEDS: Zanaflex 4 MG PO PRN ×2 (03:35→09:35)
[2021-05-30] MEDS: HYDROCODONE-ACETAMIN 10-325 MG PO PRN (05:26)
[2021-05-30 06:38] LABS: Hematocrit 36.1 % (42-50); Hemoglobin 11.5 gm/dl (12.5-18.0); Mean Cell Volume 100.8 fl (78-100); Mean Corpuscular Hemoglobin 32.1 pg (26-32); Mean Corpuscular Hgb Concent. 31.9 g/dl (32-36); Mean Platelet Volume 9.9 fl (7.5-11.0); Platelet Count 215 K/mm3 (150-450); Red Blood Count 3.58 M/mm3 (4.1-5.6); Red Cell Distribution Width 12.5 % (11.5-14.0)
[2021-05-30 06:59] LABS: ALBUMIN 2.8 g/dL (3.5-5.0); ALKALINE PHOSPHATASE 126 U/L (38-126); ANION GAP 13.3 MEQ/L (5-15); BLOOD UREA NITROGEN 20 mg/dL (9-20); CHLORIDE 92 mmol/L (98-107); Calcium 7.8 mg/dL (8.4-10.2); Carbon Dioxide 22 mmol/L (22-30); Creatinine 1 0.79 mg/dL (0.66-1.25); EST GLOMERULAR FILTRATION RATE > 60.0 ML/MIN; Glucose 140 mg/dL (74-106); Potassium 4.1 mmol/L (3.5-5.1); SGOT/AST 32 U/L (17-59); SGPT/ALT 11 U/L (0-50); SODIUM 123 mmol/L (137-145); Total Protein 5.9 g/dL (6.3-8.2)
[2021-05-30] MEDS: TYLENOL 325 MG PO PRN ×2 (07:25→19:32)
[2021-05-30] MEDS: Sodium Chloride 0.9% 1000 ML 1,000 ML IV SCH (07:26)
[2021-05-30 09:01] LABS: BAND 12 % (0.0-2.0); Lymphocytes 4 % (24-44); Monocyte 7 % (0.0-12.0); Neutrophils 77 % (36.-66.); Platelet Estimate NORMAL (NORMAL); Total Cells Counted 100
[2021-05-30] MEDS ORDERED: TROUGH DRUG LEVELS IJ ONE (09:30)
[2021-05-30] MEDS: Neurontin 400 MG PO SCH ×3 (09:35→23:08)
[2021-05-30] MEDS: Zestril 5 MG PO SCH (09:35)
[2021-05-30] MEDS: ISOPTIN S.R. 240 MG PO SCH (09:35)
[2021-05-30] MEDS: ROCEPHIN 1 Gm-D5w 50 ml Bag** 1 G/50 ML IVPB IV SCH (09:36)
[2021-05-30] MEDS ORDERED: VANCOMYCIN 1 GRAM/200 ML BAG 1 GM/200 ML PIGGYBACK IV SCH (10:00)
[2021-05-30] MEDS ORDERED: Narcan 0.4 MG/ML IV PRN (11:30)
[2021-05-30] MEDS: DILAUDID 1 MG/1ML PCA IV PRN (11:42)
[2021-05-30] MEDS ORDERED: PHARMACY DOSING REQUEST MC ONE (12:26)
[2021-05-30] MEDS: CLINDAMYCIN-D5W 600 MG/50 ML*** 600 MG/50 ML BAG IV SCH ×2 (14:01→18:31)
--- NOTE | 2021-05-30 22:21 | PCM.NOTE ---
Date and Time: 05/30/21 1800 Subjective Assessment: Patient is sleeping alot today. Medication for back and leg pain -improved control on AUTHOR'S AGENT pump.Tizanidine discontinued ,caused confusion. Urine and blood cultures x 2 grew Staph Aureus.Vancomycin and Rocephin dcd and Clindamycin started, WBC and fever had not improved on the original antibiotics. Worsening of hyponatremia,Dr Ward phone consult-stop IV NS and restrict fluids and he will evaluate patient tomorrow. Renal US for in the AM. MRI of thoracic and lumbar with contrast postponed due to urosepsis.Patient will need a Neurosurgery evaluation for worsening of radicular pain. Objective Exam General Appearance: mild distress (due to leg pain but improved after AUTHOR[employer]S AGENT pump started this afternoon) Neurologic Exam: alert, oriented x 3, cooperative, normal mood/affect, other (sleeping but easily awaked and is oriented) Skin Exam: normal color, warm, dry Ears, Nose, Throat Exam: moist mucous membranes, other (very hard of hearing- hearing aid batery ) Respiratory Exam: normal breath sounds Cardiovascular Exam: regular rate/rhythm Gastrointestinal/Abdomen Exam: soft, normal bowel sounds (nontender) Extremity Exam: other (no edema,feet are cool ,no pain to palaption) Back Exam: muscle spasm, other (no CVA tenderness) OBJECTIVE DATA Vital Signs: Vital Signs - 24 hr Temp Pulse Resp BP Pulse Ox 05/30/21 20:19 101.4 F 90 20 182/80 94 L 05/30/21 19:42 94 L 05/30/21 17:10 99.7 F 81 20 186/84 97 05/30/21 16:00 97.7 F 72 17 177/81 92 L 05/30/21 15:42 94 L 05/30/21 15:05 91 L 05/30/21 11:57 98.2 F 61 18 147/68 96 05/30/21 08:00 99.4 F 84 22 181/79 96 05/30/21 04:01 100.6 F 94 H 18 183/90 96 05/29/21 23:33 98.5 F 72 18 121/60 95 Pain Assessment - Last Documented Pain Intensity [Lower Back] 10 Pain Intensity 10 Pain Scale Used 0-10 Pain Scale Intake and Output: Intake & Output 05/28/21 05/29/21 05/30/21 05/31/21 11:59 11:59 11:59 11:59 Intake Total 8892 9531 300 Output Total 400 2300 3450 Balance -400 -41 1493 300 Weight 74.4 kg 77.9 kg Lab Results: Lab Results-Last 24 Hours 05/28/21 05/30/21 05/30/21 Range/Units 18:20 05:20 05:20 WBC 21.0 H (4.0-10.5) K/mm3 RBC 3.58 L (4.1-5.6) M/mm3 Hgb 11.5 L (12.5-18.0) gm/dl Hct 36.1 L (42-50) % MCV 100.8 H (78-100) fl MCH 32.1 H (26-32) pg MCHC 31.9 L (32-36) g/dl RDW 12.5 (11.5-14.0) % Plt Count 215 (150-450) K/mm3 MPV 9.9 (7.5-11.0) fl Segmented Neutrophils 77 H (36.-66.) % Band Neutrophils 12 H (0.0-2.0) % Lymphocytes (Manual) 4 L (24-44) % Monocytes (Manual) 7 (0.0-12.0) % Platelet Estimate NORMAL (NORMAL) RBC Morphology NORMAL Sodium 123 L (137-145) mmol/L Potassium 4.1 (3.5-5.1) mmol/L Chloride 92 L (98-107) mmol/L Carbon Dioxide 22 (22-30) mmol/L Anion Gap 13.3 (5-15) MEQ/L BUN 20 (9-20) mg/dL Creatinine 0.79 (0.66-1.25) mg/dL Estimated GFR > 60.0 ML/MIN Glucose 140 H (74-106) mg/dL POC Glucometer (74 to 106) mg/dL Calcium 7.8 L (8.4-10.2) mg/dL Total Bilirubin 1.10 (0.2-1.3) mg/dL AST 32 (17-59) U/L ALT 11 (0-50) U/L Alkaline Phosphatase 126 (38-126) U/L C-Reactive Prot, Quant 182 H (0-10) mg/L Serum Total Protein 5.9 L (6.3-8.2) g/dL Albumin 2.8 L (3.5-5.0) g/dL Urine Sodium (30-90) mmol/L 05/30/21 05/30/21 05/30/21 Range/Units 07:02 11:25 16:28 WBC (4.0-10.5) K/mm3 RBC (4.1-5.6) M/mm3 Hgb (12.5-18.0) gm/dl Hct (42-50) % MCV (78-100) fl MCH (26-32) pg MCHC (32-36) g/dl RDW (11.5-14.0) % Plt Count (150-450) K/mm3 MPV (7.5-11.0) fl Segmented Neutrophils (36.-66.) % Band Neutrophils (0.0-2.0) % Lymphocytes (Manual) (24-44) % Monocytes (Manual) (0.0-12.0) % Platelet Estimate (NORMAL) RBC Morphology Sodium (137-145) mmol/L Potassium (3.5-5.1) mmol/L Chloride (98-107) mmol/L Carbon Dioxide (22-30) mmol/L Anion Gap (5-15) MEQ/L BUN (9-20) mg/dL Creatinine (0.66-1.25) mg/dL Estimated GFR ML/MIN Glucose (74-106) mg/dL POC Glucometer 151 H 191 H 139 H (74 to 106) mg/dL Calcium (8.4-10.2) mg/dL Total Bilirubin (0.2-1.3) mg/dL AST (17-59) U/L ALT (0-50) U/L Alkaline Phosphatase (38-126) U/L C-Reactive Prot, Quant (0-10) mg/L Serum Total Protein (6.3-8.2) g/dL Albumin (3.5-5.0) g/dL Urine Sodium (30-90) mmol/L 05/30/21 05/30/21 Range/Units 20:52 Unknown WBC (4.0-10.5) K/mm3 RBC (4.1-5.6) M/mm3 Hgb (12.5-18.0) gm/dl Hct (42-50) % MCV (78-100) fl MCH (26-32) pg MCHC (32-36) g/dl RDW (11.5-14.0) % Plt Count (150-450) K/mm3 MPV (7.5-11.0) fl Segmented Neutrophils (36.-66.) % Band Neutrophils (0.0-2.0) % Lymphocytes (Manual) (24-44) % Monocytes (Manual) (0.0-12.0) % Platelet Estimate (NORMAL) RBC Morphology Sodium (137-145) mmol/L Potassium (3.5-5.1) mmol/L Chloride (98-107) mmol/L Carbon Dioxide (22-30) mmol/L Anion Gap (5-15) MEQ/L BUN (9-20) mg/dL Creatinine (0.66-1.25) mg/dL Estimated GFR ML/MIN Glucose (74-106) mg/dL POC Glucometer 156 H (74 to 106) mg/dL Calcium (8.4-10.2) mg/dL Total Bilirubin (0.2-1.3) mg/dL AST (17-59) U/L ALT (0-50) U/L Alkaline Phosphatase (38-126) U/L C-Reactive Prot, Quant (0-10) mg/L Serum Total Protein (6.3-8.2) g/dL Albumin (3.5-5.0) g/dL Urine Sodium 37 (30-90) mmol/L Radiology Exams: Radiology Procedures Category Date Time Status KIDNEY [US] Routine Exams 05/31/21 08:00 Ordered MRI L-SPINE WITH CONTRAST [MRI] Routine Exams 05/31/21 08:00 Ordered MRI T-SPINE WITH CONTRAST [MRI] Routine Exams 05/31/21 08:00 Ordered Assessment/Plan (1) Sepsis Current Visit: Yes Status: Acute Qualifiers: Sepsis type: methicillin susceptible Staphylococcus aureus Assessment & Plan: stopped Rocephin and Vancomycin and started Clidamycin today,Tmax 100.4 WBC was 15,600 on adm and is 21,00 today. (2) Radicular leg pain Current Visit: Yes Status: Acute Assessment & Plan: pain control with AUTHOR'S AGENT pump Code(s): M54.10 - RADICULOPATHY, SITE UNSPECIFIED (3) Hyponatremia Current Visit: Yes Status: Acute Code(s): E87.1 - HYPO-OSMOLALITY AND HYPONATREMIA (4) Hard of hearing Current Visit: Yes Status: Acute Assessment & Plan: hearing aids needed charged. Code(s): H91.90 - UNSPECIFIED HEARING LOSS, UNSPECIFIED EAR (5) Acute back pain Current Visit: Yes Status: Acute Assessment & Plan: improved with bedrest and pain med but will need MRI with contrast of thoracic and lumbar spine and Neurosurgery consult- on hold . See Teleneuro consult done in ER. Code(s): M54.9 - DORSALGIA, UNSPECIFIED
[2021-05-30] MEDS: Xalatan OP SCH (23:13)
[2021-05-31] MEDS: CLINDAMYCIN-D5W 600 MG/50 ML*** 600 MG/50 ML BAG IV SCH ×4 (00:35→17:36)
[2021-05-31 05:21] LABS: Hematocrit 39.1 % (42-50); Hemoglobin 12.6 gm/dl (12.5-18.0); Mean Corpuscular Hemoglobin 32.6 pg (26-32); Mean Corpuscular Hgb Concent. 32.2 g/dl (32-36); Mean Platelet Volume 9.5 fl (7.5-11.0); Platelet Count 219 K/mm3 (150-450); Red Blood Count 3.87 M/mm3 (4.1-5.6); Red Cell Distribution Width 12.5 % (11.5-14.0); White Blood Count 18.1 K/mm3 (4.0-10.5)
[2021-05-31] MEDS: DILAUDID 1 MG/1ML PCA IV PRN (05:26)
[2021-05-31 05:31] LABS: ALKALINE PHOSPHATASE 153 U/L (38-126); ANION GAP 12.8 MEQ/L (5-15); BLOOD UREA NITROGEN 15 mg/dL (9-20); CHLORIDE 91 mmol/L (98-107); Calcium 8.2 mg/dL (8.4-10.2); Carbon Dioxide 27 mmol/L (22-30); Creatinine 1 0.76 mg/dL (0.66-1.25); EST GLOMERULAR FILTRATION RATE > 60.0 ML/MIN; Glucose 145 mg/dL (74-106); Potassium 3.5 mmol/L (3.5-5.1); SGOT/AST 29 U/L (17-59); SGPT/ALT 13 U/L (0-50); SODIUM 127 mmol/L (137-145); Total Protein 6.3 g/dL (6.3-8.2)
[2021-05-31 08:29] LABS: Lymphocytes 9 % (24-44); Monocyte 3 % (0.0-12.0); Neutrophils 88 % (36.-66.); Platelet Estimate NORMAL (NORMAL); Total Cells Counted 100; Toxic Granulation 1+
--- NOTE | 2021-05-31 10:38 | XRAY ---
Indication: Urosepsis. Two-dimensional renal sonogram performed. Comparison: None Both kidneys normal reniform shape with normal color perfusion. Right kidney measures 13.8 x 4.7 x 5.3 cm and the left measures 12.8 x 4.9 x 5.0 cm. No focal solid/cystic renal mass or hydronephrosis. Cortical medullary differentiation preserved. Urinary bladder is near empty with Cespedes balloon catheter in situ. Impression: Negative renal sonogram.
--- NOTE | 2021-05-31 10:53 | HP ---
CHIEF COMPLAINT: Low back pain and urinary issues. HISTORY OF PRESENT ILLNESS: The patient is a 70-year-old white male patient who dates his problems back to a fall from a ladder a few weeks ago. He sees a primary care provider in [place] who arranged for him to have MRI and was talking about getting him a neurosurgery consult in [place]. The patient comes in today. He recently had a urinary tract infection that was treated for seven days with antibiotics but was not checked to be sure it was clear. The patient now represents. He had 400 cc of urine left in the bladder after voiding and it was purulent type of material. The patient was seen in the emergency room and given Rocephin initially after cultures were obtained. The patient's low back pain has been quite severe in nature and getting worse to the point where he is unable to ambulate without severe pain. His significant other reports that he has just basically been laying in a recliner only getting up to urinate or have a bowel movement. She specifically denies any issues with urinary incontinence or fecal incontinence. He did have a tele-neurology evaluation done as well which reported to us that there was no urgent need for surgery at this time as they did not feel that is necessary cauda equina syndrome as he had sensation all the way up to his bottom and is not incontinent. The patient has been healthy other than his hypertension, diabetes until this recent problem. PAST MEDICAL/SURGICAL HISTORY: Hypertension. Diabetes mellitus type II. They report a previous compression fracture of the L5 vertebra. HOME MEDICATIONS: Medication for diabetes mellitus type II. He has been on hydrocodone 7.5/325 for pain relief. He has been on Neurontin 300 mg t.i.d. He is taking Metformin extended release apparently one tablet daily, meloxicam 7.5 mg a day, lisinopril 5 mg a day. He has been on Medrol at 4 mg daily as well. Aspirin 325 mg a day as well. ALLERGIES: SULFA. PHYSICAL EXAMINATION: The vital signs on admission showed his temperature to be elevated 100.0F, pulse 114, respiratory rate 18 and blood pressure 181/93. O2 saturation 94%. HEENT: Normocephalic, atraumatic. Pupils equal round reactive to light. Oropharynx is somewhat dry. NECK: Supple without lymphadenopathy, thyromegaly or JVD. CHEST: Clear to auscultation with good air movement bilaterally. HEART: Regular rate and rhythm. ABDOMEN: Shows no palpable masses, nontender, Nondistended. EXTREMITIES: Without cyanosis, clubbing or edema. NEUROLOGIC: The patient is alert and oriented x3. He had a tele-neurology examination performed and evaluation is on the chart presently. SKIN: Somewhat diaphoretic but warm otherwise. LAB DATA AND TESTS: His laboratory studies thus far have shown CBC showing a white count of 15.6 with hemoglobin 14.1, PLT count 279,000. His urine was yellow and turbid, specific gravity 1.014, greater than 100 white blood cells per high power field and 50 to 100 red blood cells. His differential showed 2 bands and 84 polys. His sugar was 217 nonfasting, BUN 23, creatinine 0.8, sodium slightly low at 129. Liver enzymes were normal. Alkaline phosphatase slightly elevated at 151. COVID test was negative. Lactic acid 1.6. His MRI previously done as an outpatient was without contrast and did show multilevel neural foraminal stenosis and moderate annular disc bulging effacing the thecal sac. The patient's CT of the lumbar spine without contrast was negative for acute fracture. It showed osteopenia. Chest x-ray showed infiltrates. ASSESSMENT: A patient with significant urinary tract infection bordering on sepsis. The patient's vital signs otherwise are okay. The patient was begun on Rocephin 1 gm IV in the emergency room. His lactic acid was not increased. He has already had a tele-neurology evaluation. He will likely need surgery but we need to clear up his urinary tract infection and try to obtain MRI with contrast of the lumbar spine and extend it to thoracic spine as well. 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 His neurologist spoke about the potential for infection at this time as well but we have no reason to believe so otherwise and he has adequate reasons for his pain based on the bilateral neural foraminal stenosis basically from L1 down.
[2021-05-31] MEDS: Neurontin 400 MG PO SCH ×3 (11:09→22:03)
[2021-05-31] MEDS: ISOPTIN S.R. 240 MG PO SCH (11:09)
[2021-05-31] MEDS: Zestril 5 MG PO SCH (11:09)
--- NOTE | 2021-05-31 14:50 | PCM.NOTE ---
Date and Time: 05/31/21 1444 Subjective Assessment: Patient is agitated looking for pain pump button. Has had a piece of cheese cake just finished eating this. He is on fluid restriction since noon yesterday due to hyponatremia which sodium has improved fro 123 to 127. OBJECTIVE DATA Vital Signs: Vital Signs - 24 hr Temp Pulse Resp BP BP Pulse Ox 05/31/21 11:47 98.1 F 120 H 18 195/87 96 05/31/21 09:49 95 05/31/21 09:00 99.6 F 82 16 177/74 96 05/31/21 05:26 96 05/31/21 04:59 98.8 F 78 12 178/90 178/90 96 05/31/21 01:00 98.0 F 70 12 166/74 166/74 98 05/30/21 20:25 95 05/30/21 20:19 101.4 F 90 20 182/80 94 L 05/30/21 19:42 94 L 05/30/21 17:10 99.7 F 81 20 186/84 97 05/30/21 16:00 97.7 F 72 17 177/81 92 L 05/30/21 15:42 94 L 05/30/21 15:05 91 L Pain Assessment - Last Documented Pain Intensity [Lower Back] 10 Pain Intensity 10 Pain Scale Used 0-10 Pain Scale Intake and Output: Intake & Output 05/29/21 05/30/21 05/31/21 06/01/21 11:59 11:59 11:59 11:59 Intake Total 2259 4943 2860 380 Output Total 2300 3450 1850 Balance -41 1493 1010 380 Weight 77.9 kg 78 kg Lab Results: Lab Results-Last 24 Hours 05/28/21 05/30/21 05/30/21 Range/Units 18:20 16:28 20:52 WBC (4.0-10.5) K/mm3 RBC (4.1-5.6) M/mm3 Hgb (12.5-18.0) gm/dl Hct (42-50) % MCV (78-100) fl MCH (26-32) pg MCHC (32-36) g/dl RDW (11.5-14.0) % Plt Count (150-450) K/mm3 MPV (7.5-11.0) fl Segmented Neutrophils (36.-66.) % Lymphocytes (Manual) (24-44) % Monocytes (Manual) (0.0-12.0) % Toxic Granulation Platelet Estimate (NORMAL) RBC Morphology Sodium (137-145) mmol/L Potassium (3.5-5.1) mmol/L Chloride (98-107) mmol/L Carbon Dioxide (22-30) mmol/L Anion Gap (5-15) MEQ/L BUN (9-20) mg/dL Creatinine (0.66-1.25) mg/dL Estimated GFR ML/MIN Glucose (74-106) mg/dL POC Glucometer 139 H 156 H (74 to 106) mg/dL Calcium (8.4-10.2) mg/dL Total Bilirubin (0.2-1.3) mg/dL AST (17-59) U/L ALT (0-50) U/L Alkaline Phosphatase (38-126) U/L C-Reactive Prot, Quant 182 H (0-10) mg/L Serum Total Protein (6.3-8.2) g/dL Albumin (3.5-5.0) g/dL Urine Sodium (30-90) mmol/L 05/30/21 05/30/21 05/31/21 Range/Units 22:51 Unknown 04:22 WBC 18.1 H (4.0-10.5) K/mm3 RBC 3.87 L (4.1-5.6) M/mm3 Hgb 12.6 (12.5-18.0) gm/dl Hct 39.1 L (42-50) % MCV 101.0 H (78-100) fl MCH 32.6 H (26-32) pg MCHC 32.2 (32-36) g/dl RDW 12.5 (11.5-14.0) % Plt Count 219 (150-450) K/mm3 MPV 9.5 (7.5-11.0) fl Segmented Neutrophils 88 H (36.-66.) % Lymphocytes (Manual) 9 L (24-44) % Monocytes (Manual) 3 (0.0-12.0) % Toxic Granulation 1+ Platelet Estimate NORMAL (NORMAL) RBC Morphology NORMAL Sodium (137-145) mmol/L Potassium (3.5-5.1) mmol/L Chloride (98-107) mmol/L Carbon Dioxide (22-30) mmol/L Anion Gap (5-15) MEQ/L BUN (9-20) mg/dL Creatinine (0.66-1.25) mg/dL Estimated GFR ML/MIN Glucose (74-106) mg/dL POC Glucometer 143 H (74 to 106) mg/dL Calcium (8.4-10.2) mg/dL Total Bilirubin (0.2-1.3) mg/dL AST (17-59) U/L ALT (0-50) U/L Alkaline Phosphatase (38-126) U/L C-Reactive Prot, Quant (0-10) mg/L Serum Total Protein (6.3-8.2) g/dL Albumin (3.5-5.0) g/dL Urine Sodium 37 (30-90) mmol/L 05/31/21 05/31/21 05/31/21 Range/Units 04:22 07:43 11:31 WBC (4.0-10.5) K/mm3 RBC (4.1-5.6) M/mm3 Hgb (12.5-18.0) gm/dl Hct (42-50) % MCV (78-100) fl MCH (26-32) pg MCHC (32-36) g/dl RDW (11.5-14.0) % Plt Count (150-450) K/mm3 MPV (7.5-11.0) fl Segmented Neutrophils (36.-66.) % Lymphocytes (Manual) (24-44) % Monocytes (Manual) (0.0-12.0) % Toxic Granulation Platelet Estimate (NORMAL) RBC Morphology Sodium 127 L (137-145) mmol/L Potassium 3.5 (3.5-5.1) mmol/L Chloride 91 L (98-107) mmol/L Carbon Dioxide 27 (22-30) mmol/L Anion Gap 12.8 (5-15) MEQ/L BUN 15 (9-20) mg/dL Creatinine 0.76 (0.66-1.25) mg/dL Estimated GFR > 60.0 ML/MIN Glucose 145 H (74-106) mg/dL POC Glucometer 144 H 147 H (74 to 106) mg/dL Calcium 8.2 L (8.4-10.2) mg/dL Total Bilirubin 1.20 (0.2-1.3) mg/dL AST 29 (17-59) U/L ALT 13 (0-50) U/L Alkaline Phosphatase 153 H (38-126) U/L C-Reactive Prot, Quant (0-10) mg/L Serum Total Protein 6.3 (6.3-8.2) g/dL Albumin 3.0 L (3.5-5.0) g/dL Urine Sodium (30-90) mmol/L Radiology Exams: Radiology Procedures Category Date Time Status KIDNEY [US] Routine Exams 05/31/21 08:00 Completed Multi-Disciplinary Progress Notes: Multi-Disciplinary Progress Notes 05/31/21 13:58 Physical Therapy Note by Fe Ha PT. 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 PT. ON O2 AND CONT. PULSE OX. PT. ALSO VERY UPPER [place]. PT. NOT ABLE TO VERBALIZE PN RATING. WILL HOLD P.T. TODAY D/T CONFUSION AND ACUTE INFECTION AND CHECK ON HIM TOMORROW. SIGNIFICANT OTHER HAD MENTIONED LAST WEEK THAT HE WAS SUPPOSED TO BE REFERRED TO [facility] IN [place], BUT THEY DID NOT HAVE A DATE YET. Initialized on 05/31/21 13:58 - END OF NOTE 05/31/21 12:04 Case Management Note by Nu Kenny CASE MANAGEMENT ASSESS DEFERRED AT THIS TIME- PER NURSING NOTES PATIENT WILL NEED TO TRANSFER TO NEUROSURGERY PRIOR TO DC HOME Initialized on 05/31/21 12:04 - END OF NOTE Assessment/Plan (1) Sepsis Current Visit: Yes Status: Acute Qualifiers: Sepsis type: methicillin susceptible Staphylococcus aureus (2) Radicular leg pain Current Visit: Yes Status: Acute Code(s): M54.10 - RADICULOPATHY, SITE UNSPECIFIED (3) Hyponatremia Current Visit: Yes Status: Acute Code(s): E87.1 - HYPO-OSMOLALITY AND HYPONATREMIA (4) Hard of hearing Current Visit: Yes Status: Acute Code(s): H91.90 - UNSPECIFIED HEARING LOSS, UNSPECIFIED EAR (5) Acute back pain Current Visit: Yes Status: Acute Code(s): M54.9 - DORSALGIA, UNSPECIFIED
[2021-05-31] MEDS: TYLENOL 325 MG PO PRN (16:31)
[2021-05-31] MEDS ORDERED: TROUGH DRUG LEVELS IJ ONE (21:30)
[2021-05-31] MEDS: Sodium Chloride 0.9% 500 ML 500 ML IV SCH (22:03)
[2021-05-31] MEDS: Xalatan OP SCH (22:49)
[2021-06-01] MEDS: CLINDAMYCIN-D5W 600 MG/50 ML*** 600 MG/50 ML BAG IV SCH ×4 (01:36→17:45)
[2021-06-01] MEDS: Zanaflex 4 MG PO PRN ×2 (01:44→12:17)
[2021-06-01 05:41] LABS: Hematocrit 35.9 % (42-50); Hemoglobin 11.6 gm/dl (12.5-18.0); Mean Cell Volume 99.7 fl (78-100); Mean Corpuscular Hemoglobin 32.2 pg (26-32); Mean Corpuscular Hgb Concent. 32.3 g/dl (32-36); Mean Platelet Volume 9.5 fl (7.5-11.0); Platelet Count 226 K/mm3 (150-450); Red Cell Distribution Width 12.4 % (11.5-14.0); White Blood Count 12.6 K/mm3 (4.0-10.5)
[2021-06-01 06:26] LABS: ALBUMIN 2.8 g/dL (3.5-5.0); ALKALINE PHOSPHATASE 135 U/L (38-126); ANION GAP 12.6 MEQ/L (5-15); BLOOD UREA NITROGEN 17 mg/dL (9-20); CHLORIDE 91 mmol/L (98-107); Calcium 8.2 mg/dL (8.4-10.2); Carbon Dioxide 28 mmol/L (22-30); Creatinine 1 0.75 mg/dL (0.66-1.25); EST GLOMERULAR FILTRATION RATE > 60.0 ML/MIN; Glucose 148 mg/dL (74-106); Potassium 3.6 mmol/L (3.5-5.1); SGOT/AST 31 U/L (17-59); SGPT/ALT 13 U/L (0-50); SODIUM 128 mmol/L (137-145)
[2021-06-01] MEDS: DILAUDID 1 MG/1ML PCA IV PRN ×3 (06:42→15:47)
[2021-06-01] MEDS ORDERED: APRESOLINE 20 MG/ML INJ IV PRN (06:57)
[2021-06-01 07:59] LABS: Lymphocytes 4 % (24-44); Monocyte 3 % (0.0-12.0); Neutrophils 93 % (36.-66.); Platelet Estimate NORMAL (NORMAL); Total Cells Counted 100; Toxic Granulation 1+
--- NOTE | 2021-06-01 08:44 | PCM.NOTE ---
Date and Time: 06/01/21837 Subjective Assessment: Pt has intermittent episodes of confusion. Thinks he is having a procedure but nothing is planned. He tells me the pain is controlled with the pump and he needs to get off of some of this pain medicine, then asks for more pain medicine. Says he can't get up and around without more medicine. Says his legs get uncomfortable lying in the bed. dell po. BP to 184/82 this morning. 164/75 on recheck. - Review of Systems Constitutional: No Fever Abdominal/Gastrointestinal: No Vomiting Musculoskeletal: Back Pain Objective Exam General Appearance: no apparent distress, alert Neurologic Exam: cooperative, confusion Skin Exam: normal color, warm, dry, No rash Respiratory Exam: normal breath sounds, lungs clear, No crackles/rales, No rhonchi, No wheezing Cardiovascular Exam: regular rate/rhythm, normal heart sounds, No murmur Gastrointestinal/Abdomen Exam: soft, normal bowel sounds, distention, No tenderness, No mass, No guarding, No rebound Extremity Exam: normal inspection, No pedal edema, No swelling Back Exam: normal inspection, No rash OBJECTIVE DATA Vital Signs: Vital Signs - 24 hr Temp Pulse Resp BP BP Pulse Ox 06/01/21 07:09 972 H 06/01/21 07:00 96 06/01/21 04:00 97.5 F 58 L 22 184/82 164/75 97 06/01/21 00:09 97.6 F 64 16 184/82 97 05/31/21 21:00 98.2 F 71 12 136/68 99 05/31/21 19:30 96 05/31/21 16:29 99.6 F 81 18 173/69 97 05/31/21 11:47 98.1 F 120 H 18 195/87 96 05/31/21 09:49 95 05/31/21 09:26 96 05/31/21 09:00 99.6 F 82 16 177/74 96 Pain Assessment - Last Documented Pain Intensity [Lower Back] 10 Pain Intensity 10 Pain Scale Used 0-10 Pain Scale Intake and Output: Intake & Output 05/29/21 05/30/21 05/31/21 06/01/21 11:59 11:59 11:59 11:59 Intake Total 2259 7963 2860 1467 Output Total 2300 3450 1850 1900 Balance -41 1493 1010 -433 Weight 77.9 kg 78 kg 78 kg Lab Results: Lab Results-Last 24 Hours 05/31/21 05/31/21 05/31/21 Range/Units 11:31 16:44 21:34 WBC (4.0-10.5) K/mm3 RBC (4.1-5.6) M/mm3 Hgb (12.5-18.0) gm/dl Hct (42-50) % MCV (78-100) fl MCH (26-32) pg MCHC (32-36) g/dl RDW (11.5-14.0) % Plt Count (150-450) K/mm3 MPV (7.5-11.0) fl Segmented Neutrophils (36.-66.) % Lymphocytes (Manual) (24-44) % Monocytes (Manual) (0.0-12.0) % Toxic Granulation Platelet Estimate (NORMAL) RBC Morphology Sodium (137-145) mmol/L Potassium (3.5-5.1) mmol/L Chloride (98-107) mmol/L Carbon Dioxide (22-30) mmol/L Anion Gap (5-15) MEQ/L BUN (9-20) mg/dL Creatinine (0.66-1.25) mg/dL Estimated GFR ML/MIN Glucose (74-106) mg/dL POC Glucometer 147 H 185 H 160 H (74 to 106) mg/dL Calcium (8.4-10.2) mg/dL Total Bilirubin (0.2-1.3) mg/dL AST (17-59) U/L ALT (0-50) U/L Alkaline Phosphatase (38-126) U/L Serum Total Protein (6.3-8.2) g/dL Albumin (3.5-5.0) g/dL 06/01/21 06/01/21 06/01/21 Range/Units 04:16 04:16 07:59 WBC 12.6 H (4.0-10.5) K/mm3 RBC 3.60 L (4.1-5.6) M/mm3 Hgb 11.6 L (12.5-18.0) gm/dl Hct 35.9 L (42-50) % MCV 99.7 (78-100) fl MCH 32.2 H (26-32) pg MCHC 32.3 (32-36) g/dl RDW 12.4 (11.5-14.0) % Plt Count 226 (150-450) K/mm3 MPV 9.5 (7.5-11.0) fl Segmented Neutrophils 93 H (36.-66.) % Lymphocytes (Manual) 4 L (24-44) % Monocytes (Manual) 3 (0.0-12.0) % Toxic Granulation 1+ Platelet Estimate NORMAL (NORMAL) RBC Morphology NORMAL Sodium 128 L (137-145) mmol/L Potassium 3.6 (3.5-5.1) mmol/L Chloride 91 L (98-107) mmol/L Carbon Dioxide 28 (22-30) mmol/L Anion Gap 12.6 (5-15) MEQ/L BUN 17 (9-20) mg/dL Creatinine 0.75 (0.66-1.25) mg/dL Estimated GFR > 60.0 ML/MIN Glucose 148 H (74-106) mg/dL POC Glucometer 175 H (74 to 106) mg/dL Calcium 8.2 L (8.4-10.2) mg/dL Total Bilirubin 1.10 (0.2-1.3) mg/dL AST 31 (17-59) U/L ALT 13 (0-50) U/L Alkaline Phosphatase 135 H (38-126) U/L Serum Total Protein 6.0 L (6.3-8.2) g/dL Albumin 2.8 L (3.5-5.0) g/dL Radiology Exams: Radiology Procedures Category Date Time Status KIDNEY [US] Routine Exams 05/31/21 08:00 Completed MRI L-SPINE WITH CONTRAST [MRI] Routine Exams 06/01/21 08:33 Ordered MRI T-SPINE WITH CONTRAST [MRI] Routine Exams 06/01/21 08:33 Ordered Multi-Disciplinary Progress Notes: Multi-Disciplinary Progress Notes 05/31/21 13:58 Physical Therapy Note by Fe Ha PT. CONFUSED TODAY AND IS ON ELECTRIC METER SETTER FOR PN MG'T. PT. ON O2 AND CONT. PULSE OX. PT. ALSO VERY NOME. PT. NOT ABLE TO VERBALIZE PN RATING. WILL HOLD P.T. TODAY D/T CONFUSION AND ACUTE INFECTION AND CHECK ON HIM TOMORROW. SIGNIFICANT OTHER HAD MENTIONED LAST WEEK THAT HE WAS SUPPOSED TO BE REFERRED TO NEUROSURGEON IN [place], BUT THEY DID NOT HAVE A DATE YET. Initialized on 05/31/21 13:58 - END OF NOTE 05/31/21 12:04 Case Management Note by Nu Kenny CASE MANAGEMENT ASSESS DEFERRED AT THIS TIME- PER NURSING NOTES PATIENT WILL NEED TO TRANSFER TO NEUROSURGERY PRIOR TO DC HOME Initialized on 05/31/21 12:04 - END OF NOTE Assessment/Plan (1) Sepsis Current Visit: Yes Status: Acute Qualifiers: Sepsis type: methicillin susceptible Staphylococcus aureus Assessment & Plan: On IV clindamycin. WBC improved today, to 12.6 down from 18.1. Afebrile. (2) UTI (urinary tract infection) Current Visit: Yes Status: Acute Code(s): N39.0 - URINARY TRACT INFECTION, SITE NOT SPECIFIED (3) Acute back pain Current Visit: Yes Status: Acute Assessment & Plan: acute on chronic. Has hx of compression fx per ER note. Will go ahead with MRI today to rule out possible osteomyelitis. Neurosurgery to be contacted after MRI results are in. Code(s): M54.9 - DORSALGIA, UNSPECIFIED (4) Urinary retention Current Visit: Yes Status: Acute Assessment & Plan: 400cc retained urine in ER when valentine placed on admission. Code(s): R33.9 - RETENTION OF URINE, UNSPECIFIED (5) DDD (degenerative disc disease), lumbar Current Visit: No Status: Chronic Code(s): M51.36 - OTHER INTERVERTEBRAL DISC DEGENERATION, LUMBAR REGION
[2021-06-01] MEDS: ISOPTIN S.R. 240 MG PO SCH (10:18)
[2021-06-01] MEDS: Neurontin 400 MG PO SCH ×3 (10:18→21:23)
[2021-06-01] MEDS: Zestril 5 MG PO SCH (10:18)
[2021-06-01] MEDS: ENOXAPARIN SODIUM SQ SCH (10:20)
[2021-06-01] MEDS ORDERED: Hydromorphone 1 mg/ml Injection IV ONE (11:39)
--- NOTE | 2021-06-01 12:31 | XRAY ---
Indication: Back pain following fall. Multiple contiguous axial images obtained through the thoracic spine. Sagittal and coronal reformatted images obtained. Comparison: None Osseous structures demineralized consistent with patient's age. Mild multilevel bridging/nonbridging endplate osteophytes. No acute fracture, suspicious bony lesions, or spinal canal stenosis. Sagittal and coronal reformatted images demonstrates normal thoracic kyphosis with vertebral body heights/disc spaces maintained. No acute compression fracture or subluxation. Visualized noncontrasted soft tissues demonstrates incompletely visualized mild/moderate right base and small left base pleural effusions with mild compressive atelectasis. In Home Aide image demonstrates cardiomegaly. Mild scattered aortic calcifications, a few tiny left superhilar calcified nodes, and tiny splenic calcified granulomas. Impression: 1. Negative for acute fracture/subluxation. 2. Mild/moderate right and small left effusions with cardiomegaly. Rule out cardiac decompensation/CHF. 3. Incidental osteopenia, multilevel degenerative changes, and old granulomatous disease.
[2021-06-01] MEDS: TYLENOL 325 MG PO PRN ×2 (13:35→23:43)
[2021-06-01] MEDS ORDERED: Miralax Powder 17GM PACKET ONE (16:02)
[2021-06-01] MEDS: Miralax Powder 17GM PACKET PO SCH (16:05)
[2021-06-01] MEDS: Xalatan OP SCH (21:23)
[2021-06-01] MEDS: Sodium Chloride 0.9% 500 ML 500 ML IV SCH (21:50)
[2021-06-02] MEDS: CLINDAMYCIN-D5W 600 MG/50 ML*** 600 MG/50 ML BAG IV SCH ×4 (01:06→18:48)
[2021-06-02 05:50] LABS: Absolute Neutrophil Ct (ANC) 8.15 (1.4-6.9); BASOPHIL % 0.1 % (0.0-0.4); Basophil (Absolute #) 0.01 (0-0.4); Hematocrit 35.7 % (42-50); Hemoglobin 11.7 gm/dl (12.5-18.0); Lymphocyte (Absolute #) 0.82 (1.0-4.6); Lymphocytes % 8.2 % (24.0-44.0); Mean Cell Volume 98.9 fl (78-100); Mean Corpuscular Hemoglobin 32.4 pg (26-32); Mean Corpuscular Hgb Concent. 32.8 g/dl (32-36); Mean Platelet Volume 9.6 fl (7.5-11.0); Neutrophil % 81.7 % (36.0-66.0); Platelet Count 237 K/mm3 (150-450); Red Blood Count 3.61 M/mm3 (4.1-5.6); Red Cell Distribution Width 12.3 % (11.5-14.0)
[2021-06-02 06:28] LABS: ALBUMIN 2.9 g/dL (3.5-5.0); ALKALINE PHOSPHATASE 139 U/L (38-126); ANION GAP 11.2 MEQ/L (5-15); BLOOD UREA NITROGEN 15 mg/dL (9-20); CHLORIDE 88 mmol/L (98-107); Calcium 8.2 mg/dL (8.4-10.2); Carbon Dioxide 32 mmol/L (22-30); Creatinine 1 0.75 mg/dL (0.66-1.25); EST GLOMERULAR FILTRATION RATE > 60.0 ML/MIN; Glucose 146 mg/dL (74-106); Potassium 3.2 mmol/L (3.5-5.1); SGOT/AST 35 U/L (17-59); SGPT/ALT 16 U/L (0-50); SODIUM 128 mmol/L (137-145); Total Protein 6.2 g/dL (6.3-8.2)
[2021-06-02] MEDS ORDERED: PHARMACY DOSING REQUIRED: DILAUDID PCA IV PRN (07:48)
[2021-06-02] MEDS ORDERED: DILAUDID 1 MG/1ML PCA IV PRN (08:09)
[2021-06-02] MEDS: Miralax Powder 17GM PACKET PO SCH (10:17)
[2021-06-02] MEDS: ISOPTIN S.R. 240 MG PO SCH (10:19)
[2021-06-02] MEDS: Zestril 5 MG PO SCH (10:19)
[2021-06-02] MEDS: Neurontin 400 MG PO SCH ×2 (10:19→17:51)
[2021-06-02] MEDS: ENOXAPARIN SODIUM SQ SCH (10:20)
[2021-06-02] MEDS: K-LYTE 25 MEQ PO ONE ×2 (12:22→12:33)
[2021-06-02 12:34] VITALS: O2SAT 96
--- NOTE | 2021-06-02 13:01 | PCM.DS ---
Discharge Summary Date of Admission: 05/28/21 17:01 Admitting Physician: NILESH CARREON Consults: Consults on Case 05/28/21 11:20 Consult Neurology ROUTINE 05/30/21 12:19 Consult Nephrology ROUTINE Primary Care Provider: SANKET BULLARD Allergies Allergies Sulfa (Sulfonamide Antibiotics) Allergy (Verified 05/28/21 04:43) Hospital Summary - Hospital Course Hospital Course: Patient is a 70 yr old gentelmen patient of Dr Carreon who had a fall several weeks ago ,developing progressive increase in LBP radiating into bilateral LE. MRI Lumbar (noncontrasted) showed multilevel foraminal stenosis with annular osteophyte complex and L5/S1 spondylolisthesis. Teleneuro recommended MRI thoracic and lumbar spine with contrast. This has not been done due to Urosepsis and when attempted MRI 06/01/21 he could not tolerate lying on the hard surface. He does have [employer] pump Dilaudid. On admission patient had fever and urinary freq and incontinence with elevated WBC . Urine and 2 blood cultures grew Staph aureus. Patient did not respond to Vancomycin and per culture/sens Clindamycin was started and today WBC on 4th day of Clindamycin is down to 10,000 from 21,000. Patient will need further work up and evaluation with N eurosurgery. Arrangements made to transfer to [facility] today . Dr Garcia , Hospitalist at [facility] accepted admit. - Vitals & Intake/Output Vital Signs: Vital Signs Temperature 98.5 F 06/02/21 08:00 Pulse Rate 66 06/02/21 08:00 Respiratory Rate 20 06/02/21 08:00 Blood Pressure 150/69 06/02/21 08:00 O2 Sat by Pulse Oximetry 98 06/02/21 08:37 Intake & Output: Intake & Output 05/31/21 06/01/21 06/02/21 06/03/21 11:59 11:59 11:59 11:59 Intake Total 2860 1577 1311 Output Total 3768 7521 8888 Balance 5549 -675 -9698 Weight 78 kg 76.4 kg - Lab Result Diagrams: 06/02/21 04:50 06/02/21 04:50 Lab Results-Last 24 Hrs: Lab Results-Last 24 Hours 05/30/21 06/01/21 06/01/21 Range/Units 14:00 12:50 16:57 WBC (4.0-10.5) K/mm3 RBC (4.1-5.6) M/mm3 Hgb (12.5-18.0) gm/dl Hct (42-50) % MCV (78-100) fl MCH (26-32) pg MCHC (32-36) g/dl RDW (11.5-14.0) % Plt Count (150-450) K/mm3 MPV (7.5-11.0) fl Gran % (36.0-66.0) % Eos # (Auto) (0-0.5) Absolute Lymphs (auto) (1.0-4.6) Absolute Monos (auto) (0.0-1.3) Lymphocytes % (24.0-44.0) % Monocytes % (0.0-12.0) % Eosinophils % (0.00-5.0) % Basophils % (0.0-0.4) % Absolute Granulocytes (1.4-6.9) Basophils # (0-0.4) Sodium (137-145) mmol/L Potassium (3.5-5.1) mmol/L Chloride (98-107) mmol/L Carbon Dioxide (22-30) mmol/L Anion Gap (5-15) MEQ/L BUN (9-20) mg/dL Creatinine (0.66-1.25) mg/dL Estimated GFR ML/MIN Glucose (74-106) mg/dL POC Glucometer 154 H 236 H (74 to 106) mg/dL Calcium (8.4-10.2) mg/dL Total Bilirubin (0.2-1.3) mg/dL AST (17-59) U/L ALT (0-50) U/L Alkaline Phosphatase (38-126) U/L Serum Total Protein (6.3-8.2) g/dL Albumin (3.5-5.0) g/dL Urine Osmolality 481 (.) mOsmol/kg 06/01/21 06/01/21 06/02/21 Range/Units 19:40 20:47 04:50 WBC 10.0 (4.0-10.5) K/mm3 RBC 3.61 L (4.1-5.6) M/mm3 Hgb 11.7 L (12.5-18.0) gm/dl Hct 35.7 L (42-50) % MCV 98.9 (78-100) fl MCH 32.4 H (26-32) pg MCHC 32.8 (32-36) g/dl RDW 12.3 (11.5-14.0) % Plt Count 237 (150-450) K/mm3 MPV 9.6 (7.5-11.0) fl Gran % 81.7 H (36.0-66.0) % Eos # (Auto) 0.10 (0-0.5) Absolute Lymphs (auto) 0.82 L (1.0-4.6) Absolute Monos (auto) 0.90 (0.0-1.3) Lymphocytes % 8.2 L (24.0-44.0) % Monocytes % 9.0 (0.0-12.0) % Eosinophils % 1.0 (0.00-5.0) % Basophils % 0.1 (0.0-0.4) % Absolute Granulocytes 8.15 H (1.4-6.9) Basophils # 0.01 (0-0.4) Sodium (137-145) mmol/L Potassium (3.5-5.1) mmol/L Chloride (98-107) mmol/L Carbon Dioxide (22-30) mmol/L Anion Gap (5-15) MEQ/L BUN (9-20) mg/dL Creatinine (0.66-1.25) mg/dL Estimated GFR ML/MIN Glucose (74-106) mg/dL POC Glucometer 179 H 153 H (74 to 106) mg/dL Calcium (8.4-10.2) mg/dL Total Bilirubin (0.2-1.3) mg/dL AST (17-59) U/L ALT (0-50) U/L Alkaline Phosphatase (38-126) U/L Serum Total Protein (6.3-8.2) g/dL Albumin (3.5-5.0) g/dL Urine Osmolality (.) mOsmol/kg 06/02/21 06/02/21 06/02/21 Range/Units 04:50 07:17 12:07 WBC (4.0-10.5) K/mm3 RBC (4.1-5.6) M/mm3 Hgb (12.5-18.0) gm/dl Hct (42-50) % MCV (78-100) fl MCH (26-32) pg MCHC (32-36) g/dl RDW (11.5-14.0) % Plt Count (150-450) K/mm3 MPV (7.5-11.0) fl Gran % (36.0-66.0) % Eos # (Auto) (0-0.5) Absolute Lymphs (auto) (1.0-4.6) Absolute Monos (auto) (0.0-1.3) Lymphocytes % (24.0-44.0) % Monocytes % (0.0-12.0) % Eosinophils % (0.00-5.0) % Basophils % (0.0-0.4) % Absolute Granulocytes (1.4-6.9) Basophils # (0-0.4) Sodium 128 L (137-145) mmol/L Potassium 3.2 L (3.5-5.1) mmol/L Chloride 88 L (98-107) mmol/L Carbon Dioxide 32 H (22-30) mmol/L Anion Gap 11.2 (5-15) MEQ/L BUN 15 (9-20) mg/dL Creatinine 0.75 (0.66-1.25) mg/dL Estimated GFR > 60.0 ML/MIN Glucose 146 H (74-106) mg/dL POC Glucometer 140 H 136 H (74 to 106) mg/dL Calcium 8.2 L (8.4-10.2) mg/dL Total Bilirubin 1.20 (0.2-1.3) mg/dL AST 35 (17-59) U/L ALT 16 (0-50) U/L Alkaline Phosphatase 139 H (38-126) U/L Serum Total Protein 6.2 L (6.3-8.2) g/dL Albumin 2.9 L (3.5-5.0) g/dL Urine Osmolality (.) mOsmol/kg Micro Results-Entire Visit: Microbiology 05/28/21 04:37 Urine Culture - Final Catherized Staphylococcus Aureus 05/28/21 04:04 Blood Culture Gram Stain - Final Blood Blood Culture - Final Staphylococcus Aureus 05/28/21 04:37 Blood Culture Gram Stain - Final Blood Blood Culture - Final Staphylococcus Aureus Accuchecks Date 06/02/21 Date 06/01/21 Date 06/01/21 Time 07:30 Time 20:00 Time 04:45 - Radiology Exams Ordered Rad Exams-Entire Visit: Radiology Procedures Category Date Time Status THORACIC SPINE W/O CONTRAST [CT] Routine Exams 06/01/21 12:10 Completed - Procedures and Test Procedures and Tests throughout Hospitalization: Therapy Orders & Screens 05/28/21 09:58 PT Eval & Treat ( Order) ONCE Reason for Eval:: BACK PAIN FROM PREVIOUS FALL AT HOME Diagnosis: urosepsis 05/31/21 02:00 Oxygen Nasal Cannula 2 lpm Comment: Diagnosis: UROSEPSIS, BACK PAIN Discharge Exam General Appearance: other (patioent was asleep ,alert and oriented to place when awakened. Very [place] - [facility]pl[facility] Neurologic Exam: alert, cooperative Eye Exam: eyes nml inspection Ears, Nose, Throat Exam: other ([place] hearing aids in place.) Neck Exam: normal inspection Respiratory Exam: normal breath sounds Cardiovascular Exam: regular rate/rhythm Gastrointestinal/Abdomen Exam: soft (nontender) Final Diagnosis/Problem List - Final Discharge Diagnosis/Problem (1) Sepsis Current Visit: Yes Status: Acute Assessment & Plan: today is day 4 of Clindamycin for Staph aureus urosepsis (2) Radicular leg pain Current Visit: Yes Status: Acute Assessment & Plan: neurosurgery eval and tx needed Code(s): M54.10 - RADICULOPATHY, SITE UNSPECIFIED (3) Hyponatremia Current Visit: Yes Status: Acute Assessment & Plan: at baseline sodium= 128 today, Is on fluid restriction Code(s): E87.1 - HYPO-OSMOLALITY AND HYPONATREMIA (4) Hard of hearing Current Visit: Yes Status: Chronic Code(s): H91.90 - UNSPECIFIED HEARING LOSS, UNSPECIFIED EAR (5) Lumbar spinal stenosis Current Visit: Yes Status: Chronic Assessment & Plan: annular osteophyte comples - see MRI and CT lumbar spine(contrasted MRI lumbar not done -needs sedated for this)-see Teleneuro visit. Code(s): M48.061 - SPINAL STENOSIS, LUMBAR REGION WITHOUT NEUROGENIC LUIZA - Discharge Disposition: DC TO [facility] Condition: Stable Prescriptions: No Action Aspirin 325 mg PO DAILY Latanoprost 1 drop IO DAILY Lisinopril 5 mg [Zestril 5 MG] 2.5 mg PO DAILY Metformin HCl [Metformin HCl ER] 750 mg PO DAILY Hydrocodone/Acetaminophen [Hydrocodone-Acetamin 7.5-325] 1 each PO Q6H PRN PRN PRN Reason: Pain Gabapentin 100 mg [Neurontin 100 MG] 300 mg PO TID Verapamil HCl Sr 240 mg [Isoptin S.r. 240 mg] 240 mg PO DAILY Follow up with: SANKET BULLARD [Primary Care Provider] -
[2021-06-02 17:32] VITALS: BP 192/89; PULSE 83
[2021-06-02] MEDS: Zanaflex 4 MG PO PRN (17:51)
[2021-06-02] MEDS ORDERED: Hydromorphone 1 mg/ml Injection IV ONE (18:08)
[2021-06-02] MEDS: DILAUDID 1 MG/1ML PCA IV PRN (18:27)
[2021-06-02] MEDS: TYLENOL 325 MG PO PRN (18:49)
== END 2021-06-02 19:30 | disposition home or self-care (01) | DRG 872 ==
LOC: ED 03:28 → UNDOADMOB 09:16 → MED SURG 09:16 → INTOOBSV 17:01 → UNDOADMOB 17:01 → OBSVTOIN 17:01
PROVIDERS: ADMIT Family Medicine; ATTEND Family Medicine
DX: A41.9 Sepsis, unspecified organism (principal); N39.0 Urinary tract infection, site not specified; E87.1 Hypo-osmolality and hyponatremia; M54.5 Low back pain; M48.061 Spinal stenosis, lumbar region without neurogenic claudication; M43.17 Spondylolisthesis, lumbosacral region; R00.0 Tachycardia, unspecified; R43.8 Other disturbances of smell and taste; I10 Essential (primary) hypertension; E11.9 Type 2 diabetes mellitus without complications; M54.10 Radiculopathy, site unspecified; H91.90 Unspecified hearing loss, unspecified ear; Z79.899 Other long term (current) drug therapy; R33.9 Retention of urine, unspecified; M51.36 Other intervertebral disc degeneration, lumbar region; Z20.822 Contact with and (suspected) exposure to COVID-19
CPT/HCPCS: 36000; 36415; 51702; 72128; 76770; 80053; 81001; 82947; 83036; 83605; 83935; 84145; 84300; 85025; 85652; 86140; 87040; 87077; 87086; 87186; 93268; 94760; 94762; 96360; 96374; 96375; 97161; 99285; Q3014; U0003; J0696; J1170; J1650; J1817; J2270; J2405; A9270-GY; J3370